=== PATIENT | female | born 1995 | race Caucasian/White ===

== ENCOUNTER 2017-06-08 02:45 | Inpatient (IN) | payer OTHER ==
[2017-06-08] MEDS ORDERED: DEXTROSE 5%-LACTATED RINGERS 1,000 ML IV SCH (03:30)
[2017-06-08 04:29] VITALS: BMI 41.1
[2017-06-08] MEDS ORDERED: AMPICILLIN - 2 GM in SODIUM CHLORIDE 100 ML IVPB ONE (04:30)
[2017-06-08] MEDS ORDERED: AMPICILLIN SODIUM 2 GM VIAL ONE (04:31)
[2017-06-08 04:37] LABS: BASO % 0.3 % (0-2.0); EOS % 1.6 % (0-4.5); HEMATOCRIT 37.5 % (32.4-45.2); HEMOGLOBIN 12.7 GM/dL (10.7-15.3); LYMPH % 25.2 % (8-40); MCH 30.2 pg (25.7-33.7); MCHC 33.8 g/dl (32.0-36.0); MEAN CELL VOLUME 89.5 fl (80-96); MEAN PLT VOLUME 7.5 fl (7.5-11.1); MONO % 6.8 % (3.8-10.2); NEUT % 66.1 % (42.8-82.8); PLATELET COUNT 305 K/MM3 (134-434); RBC 4.19 M/mm3 (3.60-5.2); RDW 14.4 % (11.6-15.6); WHITE BLOOD COUNT 13.3 K/mm3 (4.0-10.0)
[2017-06-08 04:52] LABS: INR 0.96 (0.82-1.09); PROTHROMBIN TIME (PATIENT) 10.8 SEC (9.98-11.88)
[2017-06-08 04:54] LABS: ACTIVATED PTT 30.3 SECONDS (26.9-34.4)
[2017-06-08 04:59] LABS: ANION GAP 9 (8-16); BLOOD UREA NITROGEN 6 mg/dL (7-18); CALCIUM 8.8 mg/dL (8.5-10.1); CHLORIDE 107 mmol/L (98-107); CO2 23 mmol/L (21-32); CREATININE 0.4 mg/dL (0.55-1.02); GLUCOSE,RANDOM 75 mg/dL (74-106); POTASSIUM 4.1 mmol/L (3.5-5.1); SODIUM 139 mmol/L (136-145)
--- NOTE | 2017-06-08 05:04 | HP ---
Past Medical History - Admission Chief Complaint: Rupture of membrane History of Present Illness: 22 yo , @ 39 weeks gestation, EDC 06/09/17, admitted for spontaneous rupture of membrane. History Source: Patient Limitations to Obtaining History: No Limitations - Past Medical History ...: 1 ...Para: 0 ...Term: 0 ...: 0 ...Spon : 0 ...Induced : 0 ...Multiple Gestation: 0 ...LMP: 09/16/16 ... Weeks Gestation by Dates: 37.6 ...EDC by Dates: 06/23/17 ...EDC by Sono: 06/09/17 - Past Surgical History Past Surgical History: Yes: None Hx Myomectomy: No Hx Transabdominal Cerclage: No - Smoking History Smoking history: Never smoked Have you smoked in the past 12 months: No - Alcohol/Substance Use Hx Alcohol Use: No Home Medications - Allergies Allergies/Adverse Reactions: Allergies Allergy/AdvReac Type Severity Reaction Status Date / Time No Known Allergies Allergy Verified 06/08/17 03:54 - Home Medications Home Medications: Ambulatory Orders Ferrous Sulfate [Iron] 325 mg PO DAILY 06/08/17 Vit No.130/Iron/Folic [ Vitamins] 1 each PO DAILY 06/08/17 Family Disease History - Family Disease History Family History: Unremarkable Review of Systems - Review of Systems Constitutional: reports: No Symptoms Eyes: reports: No Symptoms HENT: reports: No Symptoms Neck: reports: No Symptoms Cardiovascular: reports: No Symptoms Respiratory: reports: No Symptoms Gastrointestinal: reports: No Symptoms Genitourinary: reports: Other (Leakage of fluid) Breasts: reports: No Symptoms Reported Musculoskeletal: reports: No Symptoms Integumentary: reports: No Symptoms Neurological: reports: No Symptoms Endocrine: reports: No Symptoms Hematology/Lymphatic: reports: No Symptoms Psychiatric: reports: No Symptoms Pain Intensity: 3 Physical Exam - Maternity Vital Signs: Vital Signs Temperature 97.7 F 06/08/17 03:10 Pulse Rate 84 06/08/17 03:10 Respiratory Rate 18 06/08/17 03:10 Blood Pressure 138/81 06/08/17 03:10 O2 Sat by Pulse Oximetry (%) Constitutional: Yes: Well Nourished Eyes: Yes: Conjunctiva Clear HENT: Yes: Atraumatic Neck: Yes: Supple Cardiovascular: Yes: Regular Rate and Rhythm Lungs: Clear to auscultation - Abdominal Exam/OB Number of Fetuses: Single Presentation: Vertex Contractions: Yes - Vaginal Exam/OB Dilatation (cm): 3 Amniotic Membrane Status: Ruptured Nitrazine Test: Positive - Physical Exam ...Motor Strength: WNL Psychiatric: Yes: Alert, Oriented - Labs Lab Results: CBC, BMP 06/08/17 04:25 Problem List - Problems (1) SROM (spontaneous rupture of membranes) Code(s): LSQ0505 - (2) 39 weeks gestation of Code(s): Z3A.39 - 39 WEEKS GESTATION OF Assessment/Plan IUP @ 39 weeks Spontaneous rupture of membrane Admit to L&D Analgesia as needed Anticipate
[2017-06-08] MEDS ORDERED: BUTORPHANOL TARTRATE 1 MG/ML VIAL IVPUSH ONE (06:15)
[2017-06-08] MEDS ORDERED: PROMETHAZINE HCL 25 MG/1 ML VIAL IVPUSH ONE (06:15)
[2017-06-08] MEDS ORDERED: BUTORPHANOL TARTRATE 1 MG/ML VIAL ONE ×2 (06:29)
[2017-06-08] MEDS ORDERED: PROMETHAZINE HCL 25 MG/1 ML VIAL ONE (06:30)
[2017-06-08] MEDS ORDERED: AMPICILLIN SODIUM 1 GM VIAL ONE (08:12)
[2017-06-08] MEDS: AMPICILLIN - 1 GM in SODIUM CHLORIDE 100 ML IVPB SCH ×3 (08:30→16:30)
--- NOTE | 2017-06-08 08:40 | PN ---
Progress Note (short form) - Note Progress Note: Patient seen and re-evaluated, she c/o moderate discomfort. FHR : Reassuring [place] : + regular contractions VE : 6/100/-1 A/P : SROM Analgesia as needed Anticipate Problem List - Problems (1) SROM (spontaneous rupture of membranes) Code(s): ICD1208 - (2) 39 weeks gestation of Code(s): Z3A.39 - 39 WEEKS GESTATION OF
[2017-06-08] MEDS ORDERED: TUBERCULIN PPD 5 TU/0.1ML SYRINGE (IN PATIENT USE ONLY) ID ONE (09:00)
[2017-06-08 12:54] LABS: GAMMA GLUTAMYL TRANSPEPTIDASE 9 U/L (5-85); SGOT/AST 13 U/L (15-37)
[2017-06-08 13:41] LABS: GAMMA GLUTAMYL TRANSPEPTIDASE 9 U/L (5-85); SGOT/AST 12 U/L (15-37); SGPT/ALT 15 U/L (12-78)
[2017-06-08] MEDS ORDERED: LIDOCAINE HCL 1% PRESERVATIVE FREE - 30ML VIAL ONE (16:22)
[2017-06-08] MEDS ORDERED: OXYTOCIN 20 UNITS in 0.9% NS 40 UNIT/2,000 ML INFUS.BAG IV ONE (16:22)
[2017-06-08] MEDS ORDERED: OXYTOCIN 30 UNITS in 0.9% NS 30 UNIT/500 ML INFUS.BAG IVPB ONE (16:41)
[2017-06-08] MEDS ORDERED: OXYTOCIN 30 UNITS in 0.9% NS 30 UNIT/500 ML INFUS.BAG IVPB SCH (17:15)
[2017-06-08] MEDS ORDERED: WITCH HAZEL 50% (TUCKS) 40 PAD/JAR PAD TP PRN (18:16)
[2017-06-08] MEDS ORDERED: BENZOCAINE 28 GM HEMORRHOIDAL OINTMENT TP PRN (18:16)
[2017-06-08] MEDS ORDERED: BISACODYL 10 MG SUPP.RECT RC PRN (18:16)
[2017-06-08] MEDS ORDERED: BENZOCAINE 20% 57 GM BOTTLE TP PRN (18:16)
[2017-06-08] MEDS ORDERED: METHYLERGONOVINE MALEATE 0.2 MG/1 ML AMP IM PRN (18:16)
[2017-06-08] MEDS ORDERED: ACETAMINOPHEN 325 MG TABLET (FP) PO PRN (18:16)
[2017-06-08] MEDS ORDERED: IBUPROFEN 600 MG TABLET (FP) PO PRN (18:16)
--- NOTE | 2017-06-08 18:19 | PN ---
Delivery - Delivery Vaginal Delivery: Spontaneous Type of Anesthesia: Epidural Episiotomy/Laceration: Midline EBL (cc): 300 Delivery, Single - Feeding Plan Initial Plan: Elected not to breastfeed exclusively throughout hospitalization Remarks - Remarks Remarks: Normal spontaneous vaginal delivery of a live infant girl over midline episiotomy. Nose / Oropharynx suctioned @ perineum. Cord clamped and cut. Placenta expelled spontaneously intact Midline episiotomy repaired with 2.0 Chromic.
[2017-06-08] MEDS: OXYTOCIN 20 UNITS in 0.9% NS 20 UNIT/1,000 ML INFUS.BAG IV SCH ×2 (18:40→20:20)
--- NOTE | 2017-06-09 08:16 | PN ---
Post Progress Note - Subjective Subjective: c/o mild cramps Post Day: 1 Type of Delivery: Vital Signs: Vital Signs Temperature 98.6 F 06/09/17 06:00 Pulse Rate 92 H 06/09/17 06:00 Respiratory Rate 20 06/09/17 06:00 Blood Pressure 130/57 06/09/17 06:00 O2 Sat by Pulse Oximetry (%) Breast Exam: Yes: Soft, Other (BF ). No: Engorged Uterus: Yes: Fundus Firm, Fundus below umbilicus, Non-tender Lochia, amount: Moderate Extremities: Yes: Calves non-tender, Edema Perineum: Yes: Episiotomy (healing , perineal soreness) Activity: Ambulating - Labs Labs: CBC WBC 13.3 K/mm3 (4.0-10.0) H 06/08/17 04:25 RBC 4.19 M/mm3 (3.60-5.2) 06/08/17 04:25 Hgb 12.7 GM/dL (10.7-15.3) 06/08/17 04:25 Hct 37.5 % (32.4-45.2) 06/08/17 04:25 MCV 89.5 fl (80-96) 06/08/17 04:25 MCH 30.2 pg (25.7-33.7) 06/08/17 04:25 MCHC 33.8 g/dl (32.0-36.0) 06/08/17 04:25 RDW 14.4 % (11.6-15.6) 06/08/17 04:25 Plt Count 305 K/MM3 (134-434) 06/08/17 04:25 MPV 7.5 fl (7.5-11.1) 06/08/17 04:25 Neutrophils % 66.1 % (42.8-82.8) 06/08/17 04:25 Lymphocytes % 25.2 % (8-40) 06/08/17 04:25 Monocytes % 6.8 % (3.8-10.2) 06/08/17 04:25 Eosinophils % 1.6 % (0-4.5) 06/08/17 04:25 Basophils % 0.3 % (0-2.0) 06/08/17 04:25 Retic Count 1.48 % (0.5-1.5) 06/08/17 04:25 Assessment/Plan s/p vag delivery, stable Plan : cbc today discharge tomorrow.
[2017-06-09] MEDS: PRENATAL VITAMINS W/ FOLIC ACID TABLET (FP) PO SCH (09:04)
[2017-06-09] MEDS: FERROUS SO4 325 MG TABLET (FP) PO SCH ×3 (09:04→16:39)
[2017-06-09 09:05] LABS: BASO % 0.2 % (0-2.0); EOS % 0.6 % (0-4.5); HEMATOCRIT 31.8 % (32.4-45.2); HEMOGLOBIN 10.6 GM/dL (10.7-15.3); LYMPH % 22.3 % (8-40); MCH 30.5 pg (25.7-33.7); MCHC 33.4 g/dl (32.0-36.0); MEAN CELL VOLUME 91.1 fl (80-96); MEAN PLT VOLUME 7.2 fl (7.5-11.1); MONO % 6.3 % (3.8-10.2); NEUT % 70.6 % (42.8-82.8); PLATELET COUNT 284 K/MM3 (134-434); RBC 3.49 M/mm3 (3.60-5.2); RDW 14.8 % (11.6-15.6); WHITE BLOOD COUNT 17.4 K/mm3 (4.0-10.0)
[2017-06-09] MEDS ORDERED: SENNOSIDES/DOCUSATE COMBO (SENNA PLUS) TABLET (UD) PO PRN (22:00)
[2017-06-10] MEDS ORDERED: CEFAZOLIN 1 GM/D5W 1 GM/50 ML BAG IVPB ONE (05:14)
--- NOTE | 2017-06-10 05:19 | DS ---
Physical Exam-[employer] Vital Signs: Vital Signs Temperature 98.3 F 06/09/17 22:00 Pulse Rate 86 06/09/17 22:00 Respiratory Rate 20 06/09/17 22:00 Blood Pressure 128/78 06/09/17 22:00 O2 Sat by Pulse Oximetry (%) Constitutional: Yes: Well Nourished Eyes: Yes: Conjunctiva Clear HENT: Yes: Atraumatic Neck: Yes: Supple Cardiovascular: Yes: Regular Rate and Rhythm Gastrointestinal: Yes: Normal Bowel Sounds External Genitalia: Yes: Normal Vaginal Exam: Yes: Other (Episiotomy healing) Uterus: Yes: Firm ....Post : Yes: Uterus firm, Moderate lochia serosa Extremities: Yes: WNL Neurological: Yes: Alert, Oriented ...Motor Strength: WNL Psychiatric: Yes: Alert, Oriented Labs: CBC, BMP 06/09/17 08:00 06/08/17 04:25 Delivery - Delivery Vaginal Delivery: Spontaneous Type of Anesthesia: Local Episiotomy/Laceration: Midline EBL (cc): 300 Delivery, Single - Stages of Labor Date 1st Stage Initiatied: 06/08/17 Time 1st Stage Initiated: 02:00 Date 2nd Stage Initiated: 06/08/17 Time 2nd Stage Initiated: 17:15 Date of Delivery: 06/08/17 Time of Delivery: 17:42 Time Placenta Delivered: 17:50 - Condition of Administrative Coordinator/Director Of Digital Platforms Present: No Gender: Female Weight: 6 lb 7 oz Position: Left, OA Total Hours ROM (Hrs/Mins): 15h 42min. - 1 Minute Total Score: 9 5 Minutes Total Score: 9 - Feeding Plan Initial Plan: Elected not to breastfeed exclusively throughout hospitalization Discharge Summary Reason For Visit: LABOR ADMIT Current Active Problems 39 weeks gestation of (Acute) SROM (spontaneous rupture of membranes) (Acute) Status post vaginal delivery (Acute) Procedures: Principal: Normal spontaneous vaginal delivery Hospital Course: Patient is status post vaginal delivery. She received antibiotic due to elevated WBC. Condition: Good - Instructions Diet, Activity, Other Instructions: Regular diet No douching, no sexual intercourse x 6 weeks F/U in clinic in 6 weeks Disposition: HOME - Home Medications Comprehensive Discharge Medication List: Ambulatory Orders Ferrous Sulfate [Iron] 325 mg PO DAILY 06/08/17 Vit No.130/Iron/Folic [ Vitamins] 1 each PO DAILY 06/08/17
[2017-06-10] MEDS: FERROUS SO4 325 MG TABLET (FP) PO SCH ×2 (08:00→12:04)
[2017-06-10] MEDS: PRENATAL VITAMINS W/ FOLIC ACID TABLET (FP) PO SCH (10:00)
[2017-06-10 12:09] VITALS: BP 133/86; PULSE 78; TEMP 98
== END 2017-06-10 13:05 | disposition home or self-care (01) | DRG 560 ==
LOC: JLDR 02:45 → J3W 20:45
PROVIDERS: ADMIT Obstetrics & Gynecology; ATTEND Obstetrics & Gynecology
PROC: 10E0XZZ Delivery of Products of Conception, External Approach (ICD-10-PCS; principal; 2017-06-08)
PROC: 0W8NXZZ Division of Female Perineum, External Approach (ICD-10-PCS; 2017-06-08)
DX: O80 Encounter for full-term uncomplicated delivery (principal); Z3A.39 39 weeks gestation of pregnancy; Z37.0 Single live birth
CPT/HCPCS: 36415; 59409; 80048; 82977; 83010; 84450; 84460; 85025; 85044; 85610; 85730; 86593; 86850; 86900; 86901; 87389

== ENCOUNTER 2022-03-24 14:28 | Inpatient (IN) | payer OTHER ==
[2022-03-24] MEDS: ELECTROLYTE-148 SOLN 1,000 ML IV SCH (15:45)
[2022-03-24 15:51] LABS: BASO % 0.2 % (0-2.0); EOS % 1.3 % (0-4.5); HEMATOCRIT 38.2 % (32.4-45.2); HEMOGLOBIN 12.5 GM/dL (10.7-15.3); LYMPH % 28.2 % (8-40); MCH 28.5 pg (25.7-33.7); MCHC 32.6 g/dl (32.0-36.0); MEAN CELL VOLUME 87.4 fl (80-96); MEAN PLT VOLUME 6.9 fl (7.5-11.1); MONO % 4.8 % (3.8-10.2); NEUT % 65.5 % (42.8-82.8); PLATELET COUNT 350 10^3/uL (134-434); RBC 4.37 M/mm3 (3.60-5.2); RDW 13.9 % (11.6-15.6); WHITE BLOOD COUNT 11.9 K/mm3 (4.0-10.0)
[2022-03-24 16:00] LABS: INR 0.99 (0.83-1.09); PROTHROMBIN TIME (PATIENT) 11.4 SEC (9.7-13.0)
[2022-03-24] MEDS ORDERED: DINOPROSTONE 10 MG VAGINAL SUPPOSITORY VG ONE (16:02)
[2022-03-24 16:03] LABS: ACTIVATED PTT 32.6 SECONDS (25.2-36.5)
[2022-03-24] MEDS ORDERED: BUTORPHANOL TARTRATE 2 MG/ML VIAL IVPUSH ONE (16:06)
[2022-03-24] MEDS ORDERED: PROMETHAZINE HCL 50 MG/1 ML AMP IM ONE (16:08)
[2022-03-24] MEDS ORDERED: PROMETHAZINE HCL 25 MG/1 ML VIAL IVPUSH ONE (16:09)
[2022-03-24 16:11] LABS: CALCIUM 9.6 mg/dL (8.5-10.1)
[2022-03-24 16:12] LABS: BLOOD UREA NITROGEN 11.9 mg/dL (7-18)
[2022-03-24 16:15] LABS: CREATININE 0.6 mg/dL (0.55-1.3)
[2022-03-24 16:24] VITALS: BMI 45.3
[2022-03-24 19:49] LABS: HIV INTERPRETATION NEGATIVE (NEGATIVE)
[2022-03-25] MEDS ORDERED: OXYTOCIN 30 UNITS in 0.9% NS 30 UNIT/500 ML INFUS.BAG IVPB SCH (05:45)
[2022-03-25] MEDS ORDERED: OXYTOCIN 30 UNITS in 0.9% NS 30 UNIT/500 ML INFUS.BAG IVPB ONE (05:47)
[2022-03-25] MEDS: ELECTROLYTE-148 SOLN 1,000 ML IV SCH (08:00)
[2022-03-25] MEDS ORDERED: CITRIC ACID/SODIUM CITRATE 30 ML UNIT-DOSE CUP PO ONE (09:54)
[2022-03-25] MEDS ORDERED: FENTANYL CITRATE/PF 50 MCG/ML VIAL ONE (10:06)
[2022-03-25] MEDS ORDERED: morphine SULFATE (PF) 1 MG/2 ML SYRINGE ONE (10:06)
[2022-03-25] MEDS ORDERED: OXYTOCIN 10 UNITS/ML VIAL ONE (10:33)
[2022-03-25] MEDS ORDERED: KETOROLAC TROMETHAMINE 30 MG/1 ML VIAL ONE (10:33)
[2022-03-25] MEDS ORDERED: ceFAZolin SODIUM 1 GM VIAL ONE (10:33)
[2022-03-25] MEDS ORDERED: ONDANSETRON 4 MG/2 ML VIAL ONE (10:33)
[2022-03-25 11:46] LABS: CORD BASE EXCESS -3.5 mmol/L (0-2); CORD HCO3 23.9 mmHg (20-29); CORD PCO2 51.1 mmHg (30-78); CORD pH 7.287 (7.14-7.44)
[2022-03-25] MEDS ORDERED: ONDANSETRON 4 MG/2 ML VIAL IVPB PRN (12:28)
[2022-03-25] MEDS ORDERED: SENNOSIDES/DOCUSATE COMBO (SENNA PLUS) TABLET (UD) PO PRN (12:28)
[2022-03-25] MEDS ORDERED: ACETAMINOPHEN 325 MG TABLET (FP) PO PRN (12:28)
[2022-03-25] MEDS ORDERED: ACETAMINOPHEN 1000 MG/100 ML BAG IVPB PRN (12:28)
[2022-03-25] MEDS ORDERED: oxyCODONE HCL 5 MG TABLET PO PRN (12:28)
[2022-03-25] MEDS ORDERED: OXYTOCIN 20 UNITS in 0.9% NS 20 UNIT/1,000 ML INFUS.BAG IV SCH (12:30)
[2022-03-25] MEDS ORDERED: morphine SULFATE/PF 1 MG/2 ML (2cc Syringe - QUVA) SPIN ONE (12:35)
[2022-03-25] MEDS: OXYTOCIN 20 UNITS in 0.9% NS 20 UNIT/1,000 ML INFUS.BAG IV SCH (14:00)
[2022-03-25 20:28] VITALS: RESP 18
[2022-03-25] MEDS ORDERED: METHYLERGONOVINE MALEATE 0.2 MG/1 ML AMP IM ONE (22:05)
[2022-03-25] MEDS ORDERED: METHYLERGONOVINE MALEATE 0.2 MG/1 ML AMP IM PRN (22:25)
[2022-03-25] MEDS: SIMETHICONE 80 MG TAB.CHEW (FP) PO PRN (22:27)
[2022-03-25] MEDS: IBUPROFEN 800 MG/8 ML IJ IVPB PRN (22:28)
[2022-03-26] MEDS: OXYTOCIN 20 UNITS in 0.9% NS 20 UNIT/1,000 ML INFUS.BAG IV SCH
[2022-03-26] MEDS: SIMETHICONE 80 MG TAB.CHEW (FP) PO PRN ×2 (06:10→19:58)
[2022-03-26] MEDS: IBUPROFEN 800 MG/8 ML IJ IVPB PRN (06:10)
[2022-03-26 09:07] LABS: BASO % 0.2 % (0-2.0); EOS % 0.8 % (0-4.5); HEMATOCRIT 34.9 % (32.4-45.2); HEMOGLOBIN 11.5 GM/dL (10.7-15.3); LYMPH % 22.3 % (8-40); MCH 29.2 pg (25.7-33.7); MCHC 32.9 g/dl (32.0-36.0); MEAN PLT VOLUME 6.9 fl (7.5-11.1); MONO % 5.5 % (3.8-10.2); NEUT % 71.2 % (42.8-82.8); PLATELET COUNT 309 10^3/uL (134-434); RBC 3.92 M/mm3 (3.60-5.2); WHITE BLOOD COUNT 13.5 K/mm3 (4.0-10.0)
[2022-03-26] MEDS: ENOXAPARIN NA (PORCINE) 40 MG/0.4 ML DISP.SYRIN SQ SCH (09:13)
[2022-03-26 09:32] LABS: CALCIUM 8.3 mg/dL (8.5-10.1)
[2022-03-26 09:36] LABS: CREATININE 0.5 mg/dL (0.55-1.3)
[2022-03-26] MEDS ORDERED: BISACODYL 10 MG SUPP.RECT RC PRN (12:29)
[2022-03-26] MEDS: IBUPROFEN 600 MG TABLET (FP) PO PRN ×3 (14:27→23:46)
[2022-03-27] MEDS: SIMETHICONE 80 MG TAB.CHEW (FP) PO PRN (08:12)
[2022-03-27] MEDS: IBUPROFEN 600 MG TABLET (FP) PO PRN (08:12)
[2022-03-27] MEDS: ENOXAPARIN NA (PORCINE) 40 MG/0.4 ML DISP.SYRIN SQ SCH (09:51)
[2022-03-27 10:20] VITALS: BP 124/81; PULSE 85; TEMP 98
== END 2022-03-27 13:50 | disposition home or self-care (01) | DRG 540 ==
LOC: JLDR 14:28 → J3W 03-25 14:10
PROVIDERS: ADMIT Family Medicine; ATTEND Family Medicine
PROC: 10D00Z1 Extraction of Products of Conception, Low, Open Approach (ICD-10-PCS; principal; 2022-03-25)
PROC: 3E0P7VZ Introduction of Hormone into Female Reproductive, Via Natural or Artificial Opening (ICD-10-PCS; 2022-03-25)
DX: O36.8330 Maternal care for abnormalities of the fetal heart rate or rhythm, third trimester, not applicable or unspecified (principal); O36.5930 Maternal care for other known or suspected poor fetal growth, third trimester, not applicable or unspecified; O69.82X0 Labor and delivery complicated by other cord entanglement, without compression, not applicable or unspecified; Z3A.38 38 weeks gestation of pregnancy; Z37.0 Single live birth
CPT/HCPCS: 36415; 36600; 80048; 82803; 85025; 85610; 85730; 86780; 86850; 86900; 86901; 87389; 88307-TC; C9803-CS; U0003; U0005